=== PATIENT | female | born 1990 | race American Indian/Alaskan Native ===

== ENCOUNTER 2017-10-26 17:06 | Emergency (ER) | payer SELFPAY ==
--- NOTE | 2017-10-26 21:25 | Emergency Department Report ---
Minor Respiratory - HPI Chief Complaint: Upper Respiratory Infection Stated Complaint: FLU LIKE SYMPTOMS Time Seen by Provider: 10/26/17 21:02 Duration: 3 weeks Pain Location: Nose (congestion) Severity: moderate Minor Respiratory: Yes Rhinorrhea, Yes Able to Tolerate Fluids, Yes Cough, No Sore Throat, No Ear Pain, No Sick Contacts, No Hemoptysis, No Chest Pain, No Shortness of Breath, No Fever Other History: This is a 27-year-old -[place] female who presents with congestion and cough for 3 weeks. Patient reports going to her primary care doctor with [facility] 2 weeks ago and began diagnosis with bronchitis and sinusitis. She was started on azithromycin, albuterol inhaler, and Cheratussin. Patient reports initially feeling a little bit better but the symptoms returned about one week ago. Reports having increased congestion with yellow rhinorrhea that is thick, and a cough. She has completed Cheratussin and has nothing to improve cough. She does have a history of smoking cigarettes about 5-6 cigarettes per day. She is also complaining of vaginal discharge and irritation from antibiotic. Denies fever, shortness of breath, wheezing, chest pain, nausea or vomiting, and abdominal pain. ED Review of Systems ROS: Stated complaint: FLU LIKE SYMPTOMS Other details as noted in HPI Constitutional: denies: chills, fever ENT: congestion. denies: ear pain, throat pain Respiratory: cough. denies: shortness of breath, wheezing Cardiovascular: denies: chest pain, palpitations, edema, syncope Gastrointestinal: denies: abdominal pain, nausea, vomiting, diarrhea Genitourinary: discharge (thick white discharge). denies: urgency, dysuria Musculoskeletal: denies: back pain, joint swelling, arthralgia, myalgia Neurological: denies: headache, weakness, paresthesias Psychiatric: denies: anxiety, depression ED Past Medical Hx - Past Medical History Previous Medical History?: No - Surgical History Past Surgical History?: No - Social History Smoking Status: Current Every Day Smoker Substance Use Type: None - Medications Home Medications: Home Medications Medication Instructions Recorded Confirmed Last Taken Type Benzonatate 200 mg PO TID PRN #30 capsule 10/26/17 Unknown Rx Fluconazole [Diflucan] 150 mg PO ONCE #1 tablet 10/26/17 Unknown Rx Fluticasone [Flonase] 1 spray NS QDAY #1 bottle 10/26/17 Unknown Rx Guaifenesin/Phenylephrine HCl 1 each PO BID #14 tablet 10/26/17 Unknown Rx [Congest-Taran PE 10-400 mg Cplt] Minor Respiratory Exam - Exam General: Vital signs noted. No distress. Alert and acting appropriately. HEENT: Yes Moist Mucous Membranes, Yes Rhinorrhea (turbinates mildly congested with clear discharge), No Pharyngeal Erythema, No Pharyngeal Exudates, No Conjuctival Injection, No Frontal Tenderness, No Maxillary Tenderness Ear: Neither TM Bulge, Neither TM Erythema, Neither EAC Pain, Neither EAC Discharge Neck: Yes Supple, No Adenopathy Lungs: Yes Good Air Exchange, No Wheezes, No Ronchi, No Stridor, No Cough, No Labored Respirations, No Retractions, No Use of Accessory Muscles, No Other Abnormal Lung Sounds Heart: Yes Regular, No Murmur Abdomen: Yes Normal Bowel Sounds, No Tenderness, No Peritoneal Signs Skin: No Rash, No Edema Neurologic: Alert and oriented, no deficits. Musculoskeletal: Unremarkable. ED Course Vital Signs 10/26/17 17:59 Temperature 98.5 F Pulse Rate 86 Respiratory 16 Rate Blood Pressure 130/89 O2 Sat by Pulse 99 Oximetry ED Medical Decision Making - Medical Decision Making 27 y.o. female that presents with congestion and cough for one week status post bronchitis and sinusitis treatment. Patient also complaining of yeast infection post antibiotic treatment. Patient examined by me and stable. No distress noted. Vitals stable. Normal assessment. Physical findings susceptible of upper respiratory infection. We'll treat with supportive care. Start benzonatate, Mucinex, Flonase, and Diflucan. Discharged home. Return to work tomorrow. Follow with PCP in 2-3 days. Critical care attestation.: If time is entered above; I have spent that time in minutes in the direct care of this critically ill patient, excluding procedure time. ED Disposition Clinical Impression: Post-viral cough syndrome, Antibiotic-induced yeast infection Upper respiratory infection Qualifiers: URI type: acute nasopharyngitis (common cold) Qualified Code(s): J00 - Acute nasopharyngitis [common cold] Disposition: TO HOME OR SELFCARE Is pt being admited?: No Does the pt Need Aspirin: No Condition: Stable Instructions: Vulvovaginal Candidiasis (ED), Upper Respiratory Infection (ED), Cold Symptoms (ED) Additional Instructions: Increase fluid intake and rest. Wash hands frequently. Continue taking tylenol or ibuprofen to control fever. F/U with Primary Care Provider in 2-3 days. Return to ER if fever, SOB, or difficulty breathing after 48 hours of supportive care. Prescriptions: Benzonatate 200 mg PO TID PRN #30 capsule PRN Reason: Cough Fluconazole [Diflucan] 150 mg PO ONCE #1 tablet Fluticasone [Flonase] 1 spray NS QDAY #1 bottle Guaifenesin/Phenylephrine HCl [Congest-Taran PE 10-400 mg Cplt] 1 each PO BID #14 tablet Referrals: [facility] [Provider Group] - 3-5 Days Forms: Work/School Release Form(ED) Time of Disposition: 21:33 Print Language: [place] IRISH
[2017-10-26 21:47] VITALS: BP 136/88
== END 2017-10-26 21:48 | disposition home or self-care (01) ==
LOC: ED 17:06
DX: J06.9 Acute upper respiratory infection, unspecified (principal); B37.9 Candidiasis, unspecified; F17.200 Nicotine dependence, unspecified, uncomplicated
CPT/HCPCS: 99281